=== PATIENT | female | born 1980 | race Caucasian/White ===

== ENCOUNTER 2018-05-08 14:06 | Emergency (ER) | payer OTHER ==
[2018-05-08 14:27] VITALS: BP 127/64
[2018-05-08] MEDS ORDERED: Albuterol 2.5 MG/3 ML NEB.SOL* (0.083%) INH ONE (15:54)
--- NOTE | 2018-05-08 15:55 | UC ---
UC General HPI - HPI Summary HPI Summary: Patient is complaining of 5 day history of cough and chest congestion. She admits to some wheezing. She denies any history of asthma and has had no associated fever. Her boyfriend was recently diagnosed with bronchitis. - History of Current Complaint Chief Complaint: UCRespiratory Stated Complaint: CHEST CONGESTION, COUGH Time Seen by Provider: 05/08/18 15:49 Hx Obtained From: Patient Hx Last Menstrual Period: 04/24/18 Onset/Duration: Gradual Onset Timing: Constant Pain Intensity: 0 Associated Signs & Symptoms: Positive: Cough, SOB, Wheezing. Negative: Fever - Allergy/Home Medications Allergies/Adverse Reactions: Allergies Allergy/AdvReac Type Severity Reaction Status Date / Time No Known Allergies Allergy Verified 05/08/18 14:23 Home Medications: Home Medications Budesonide/Formote 160/4.5(NF) [Symbicort 160/4.5 (NF)] 1 puff INH BID 05/08/18 [History Confirmed 05/08/18] PMH/Surg Hx/FS Hx/Imm Hx Previously Healthy: Yes - Surgical History Surgical History: None - Family History Known Family History: Positive: Hypertension, Diabetes - Social History Occupation: Employed Full-time Lives: Dormitory/Roommates Alcohol Use: Rare Substance Use Type: None Smoking Status (MU): Light Every Day Tobacco Smoker Type: Cigarettes Amount Used/How Often: 5 cigs per day - Immunization History Vaccination Up to Date: Yes Review of Systems Constitutional: Negative Skin: Negative Eyes: Negative ENT: Negative Respiratory: Shortness Of Breath, Cough Cardiovascular: Negative Gastrointestinal: Negative Genitourinary: Negative Motor: Negative Neurovascular: Negative Musculoskeletal: Negative Neurological: Negative Psychological: Negative Is Patient Immunocompromised?: No All Other Systems Reviewed And Are Negative: Yes Physical Exam Triage Information Reviewed: Yes Appearance: Well-Appearing Vital Signs: Initial Vital Signs Temp 98.4 F 05/08/18 14:21 Pulse 81 05/08/18 14:21 Resp 18 05/08/18 14:21 BP 127/64 05/08/18 14:21 Pulse Ox 99 05/08/18 14:21 Eyes: Positive: Conjunctiva Clear ENT: Positive: Pharynx normal, TMs normal. Negative: Nasal congestion, Nasal drainage Neck: Positive: Supple, Nontender, No Lymphadenopathy Respiratory: Positive: No respiratory distress, Decreased breath sounds, Rhonchi , Wheezing Cardiovascular: Positive: RRR, No Murmur Abdomen Description: Positive: Nontender, No Organomegaly, Soft Bowel Sounds: Positive: Present Musculoskeletal: Positive: ROM Intact Neurological: Positive: Alert Psychological: Positive: Age Appropriate Behavior Skin Exam: Normal Re-Evaluation - Re-Evaluation First Eval Re-Evaluation Time: 16:21 Change: Improved - improved aeration upper lungs but faint cracvkles and wheezes both bases. pt notes breathing is easier. Course/Dx - Course Course Of Treatment: focal abnormal bs bases post next thus will cover for presumptive bacterial infection - Differential Dx - Multi-Symptom Provider Diagnoses: cough. bronchospasm. Discharge - Sign-Out/Discharge Documenting (check all that apply): Patient Departure All imaging exams completed and their final reports reviewed: No Studies - Discharge Plan Condition: Improved Disposition: HOME Prescriptions: Albuterol HFA INHALER* [Ventolin HFA Inhaler*] 2 puff INH Q6H #1 mdi Azithromycin TAB* [Zithromax TAB (Z-DEVIKA) 250 mg #6 tabs] 2 tab PO .TODAY, THEN 1 DAILY #1 devika predniSONE TAB* [Deltasone 20 MG TAB*] 40 mg PO DAILY 5 Days #10 tab Patient Education Materials: Acute Cough (ED), Bronchospasm (ED) Referrals: Lisa Orosco MD [Primary Care Provider] - 5 Days - Billing Disposition and Condition Condition: IMPROVED Disposition: Home
== END 2018-05-08 16:36 | disposition home or self-care (01) ==
LOC: UCCORT 14:06
DX: J98.01 Acute bronchospasm (principal); F17.210 Nicotine dependence, cigarettes, uncomplicated
CPT/HCPCS: 99202; G0463

== ENCOUNTER 2018-10-10 08:31 | Emergency (ER) | payer OTHER ==
[2018-10-10 08:43] VITALS: BP 140/80
[2018-10-10] MEDS ORDERED: Ipratropium 0.5MG/2.5ML NEB* 0.5 MG/2.5 ML NEB.SOLN INH ONE (09:01)
[2018-10-10] MEDS ORDERED: Albuterol 2.5 MG/3 ML NEB.SOL* (0.083%) INH ONE (09:01)
--- NOTE | 2018-10-10 09:01 | UC ---
Respiratory Complaint HPI - HPI Summary HPI Summary: 38 yo female ill x about 8 days with cough/wheezing/chest tightness. Had felt feverish at times. + chills hx bronchitis - History of Current Complaint Chief Complaint: UCRespiratory Stated Complaint: COUGH,CONGESTION Time Seen by Provider: 10/10/18 08:55 Hx Obtained From: Patient Hx Last Menstrual Period: 10/04/18 Onset/Duration: Gradual Onset, Lasting Days Timing: Constant Severity Initially: Mild Severity Currently: Moderate Pain Intensity: 0 Pain Scale Used: 0-10 Numeric Character: Cough: Productive Aggravating Factors: Exertion, Deep Breaths Alleviating Factors: Nothing Associated Signs And Symptoms: Positive: Fever - murray, Chills, Wheezing, URI, Nasal Congestion Related History: Similar Episode/Dx as: - bronchitis- has used nebs - Allergies/Home Medications Allergies/Adverse Reactions: Allergies Allergy/AdvReac Type Severity Reaction Status Date / Time No Known Allergies Allergy Verified 10/10/18 08:41 PMH/Surg Hx/FS Hx/Imm Hx Previously Healthy: Yes Respiratory History: Bronchitis - Surgical History Surgical History: None - Family History Known Family History: Positive: Hypertension, Diabetes - Social History Alcohol Use: Rare Substance Use Type: None Smoking Status (MU): Light Every Day Tobacco Smoker Type: Cigarettes Amount Used/How Often: 5 cigs per day - Immunization History Vaccination Up to Date: Yes Review of Systems All Other Systems Reviewed And Are Negative: Yes Constitutional: Positive: Fever, Chills, Fatigue Skin: Positive: Negative Eyes: Positive: Negative ENT: Positive: Sinus Congestion Respiratory: Positive: Cough Cardiovascular: Positive: Negative Gastrointestinal: Positive: Negative Genitourinary: Positive: Negative Motor: Positive: Negative Neurovascular: Positive: Negative Musculoskeletal: Positive: Negative Neurological: Positive: Negative Psychological: Positive: Negative Physical Exam Triage Information Reviewed: Yes Appearance: Well-Appearing, No Pain Distress, Well-Nourished Vital Signs: Initial Vital Signs Temp 97.7 F 10/10/18 08:40 Pulse 83 10/10/18 08:40 Resp 18 10/10/18 08:40 BP 140/80 10/10/18 08:40 Pulse Ox 98 10/10/18 08:40 Vital Signs Reviewed: Yes Eyes: Positive: Conjunctiva Clear ENT: Positive: Hearing grossly normal, Uvula midline. Negative: Nasal congestion, Nasal drainage, Tonsillar swelling, Tonsillar exudate, Trismus, Muffled voice, Hoarse voice Neck: Positive: Supple, Nontender, No Lymphadenopathy Respiratory: Positive: Lungs clear, Normal breath sounds, No respiratory distress, No accessory muscle use Cardiovascular: Positive: RRR, No Murmur Abdominal Exam: Normal Bowel Sounds: Positive: Present Musculoskeletal: Positive: ROM Intact, No Edema Neurological: Positive: Alert Psychological Exam: Normal Skin Exam: Normal Re-Evaluation - Re-Evaluation First Eval Re-Evaluation Time: 09:41 Change: Improved Comment: lungs cta Respiratory Course/Dx - Differential Dx/Diagnosis Provider Diagnosis: Acute bronchitis with bronchospasm Discharge - Sign-Out/Discharge Documenting (check all that apply): Patient Departure All imaging exams completed and their final reports reviewed: No Studies - Discharge Plan Condition: Stable Disposition: HOME Prescriptions: Albuterol HFA INHALER* [Ventolin HFA Inhaler*] 2 puff INH QID #1 mdi Amoxicillin PO (*) [Amoxicillin 875 MG (*)] 875 mg PO BID #14 tab Fluconazole 150 MG (NF) [Diflucan 150 mg (NF)] 150 mg PO ONCE #1 tab predniSONE [Deltasone 20 MG TAB] 40 mg PO DAILY #10 tab Patient Education Materials: Acute Bronchitis (ED) Forms: *Work Release Referrals: Lisa Orosco MD [Primary Care Provider] - 4 Days - Billing Disposition and Condition Condition: STABLE Disposition: Home
== END 2018-10-10 09:48 | disposition home or self-care (01) ==
LOC: UCCORT 08:31
DX: J20.9 Acute bronchitis, unspecified (principal); F17.210 Nicotine dependence, cigarettes, uncomplicated
CPT/HCPCS: 99213; G0463

== ENCOUNTER 2019-05-17 15:10 | Emergency (ER) | payer OTHER ==
[2019-05-17 15:24] VITALS: BP 131/64
--- NOTE | 2019-05-17 15:34 | UC ---
Eye Complaint HPI - HPI Summary HPI Summary: swollen left eye x 2 days redness and swelling left lower eyelid painful to touch , no discharge, no change in vision no photophobia - History of Current Complaint Chief Complaint: UCEye Stated Complaint: LT EYE CONCERN Time Seen by Provider: 05/17/19 15:21 Hx Obtained From: Patient Hx Last Menstrual Period: 10/04/18 ?: No Onset/Duration: Gradual Onset, Lasting Days - 2, Still Present Timing: Constant Severity Initially: Moderate Severity Currently: Moderate Pain Intensity: 3 Location of Injury: Eye Lid (lower) - left Character: Dull Aggravating Factor(s): Other - touch Alleviating Factor(s): Nothing Associated Signs And Symptoms: Positive: Swelling. Negative: Photophobia, Drainage (Clear), Drainage (Purulent), Vision Impairment Bilateral, Vision Impairment Right, Vision Impairment Left, Fever - Allergies/Home Medications Allergies/Adverse Reactions: Allergies Allergy/AdvReac Type Severity Reaction Status Date / Time No Known Allergies Allergy Verified 05/17/19 15:24 Home Medications: Home Medications FLUoxetine CAP* [PROzac CAP*] 40 mg PO DAILY 05/17/19 [History Confirmed ] Fluconazole 150 MG (NF) [Diflucan 150 mg (NF)] 150 mg PO TID 05/17/19 [History Confirmed 05/17/19] traZODone TAB* [Desyrel TAB*] 50 mg PO BEDTIME 05/17/19 [History Confirmed 05/17] PMH/Surg Hx/FS Hx/Imm Hx Previously Healthy: Yes - Surgical History Surgical History: None - Family History Known Family History: Positive: Hypertension, Diabetes - Social History Alcohol Use: None Substance Use Type: None Smoking Status (MU): Light Every Day Tobacco Smoker Type: Cigarettes Amount Used/How Often: 5 cigs per day - Immunization History Vaccination Up to Date: Yes Review of Systems All Other Systems Reviewed And Are Negative: Yes Constitutional: Positive: Negative Skin: Positive: Negative Eyes: Negative: Blurred Vision, Diplopia, Drainage, Eye Redness, Photophobia ENT: Positive: Negative Is Patient Immunocompromised?: No Physical Exam Triage Information Reviewed: Yes Appearance: Well-Appearing, No Pain Distress, Obese Vital Signs: Initial Vital Signs Temp 98.6 F 05/17/19 15:19 Pulse 62 05/17/19 15:19 Resp 18 05/17/19 15:19 BP 131/64 05/17/19 15:19 Pulse Ox 99 05/17/19 15:19 Vital Signs Reviewed: Yes Eyes: Positive: Conjunctiva Clear, Other: - stye left lower eyelid ENT Exam: Normal Neck exam: Normal Respiratory: Positive: Chest non-tender, Lungs clear, Normal breath sounds Cardiovascular: Positive: RRR, No Murmur, Pulses Normal Eye Complaint Course/Dx - Differential Dx/Diagnosis Provider Diagnosis: Hordeolum externum left lower eyelid Discharge ED - Sign-Out/Discharge Documenting (check all that apply): Patient Departure All imaging exams completed and their final reports reviewed: No Studies - Discharge Plan Condition: Stable Disposition: HOME Prescriptions: Cephalexin CAP* [Keflex CAP*] 500 mg PO TID #30 cap Patient Education Materials: Glenna (ED) Referrals: Lisa Orosco MD [Primary Care Provider] - If Needed - Billing Disposition and Condition Condition: STABLE Disposition: Home
== END 2019-05-17 15:35 | disposition home or self-care (01) ==
LOC: UCCORT 15:10
DX: H00.015 Hordeolum externum left lower eyelid (principal); Z87.891 Personal history of nicotine dependence
CPT/HCPCS: 99212; G0463